=== PATIENT | male | born 1990 | race Caucasian/White ===

== ENCOUNTER 2016-10-26 09:13 | Emergency (ER) | payer BC ==
--- NOTE | 2016-10-26 09:32 | ERPHSYRPT ---
- History of Present Illness Time Seen by Provider: 10/26/16 09:27 Source: patient Exam Limitations: no limitations Patient Subjective Stated Complaint: PT REPORTS PLAYING BASKETBALL WHEN HE GOT HIT IN THE LEFT EYE BY AN ELBOW-DENIES LOC-REPORTS VOMIT X 2 YESTERDAY-STATES HE HAS A HEADACHE BUT DENIES NUMBNESS OR TINLGING Triage Nursing Assessment: PT PINK WARM ET [id number] ALL QUESTIONS CORRECTLY-MOVING ALL EXTREMITIES WITH EASE-RESP EASY ET NONLABORED-BRUISING NOTED TO LEFT EYE-PUPILS REACTIVE Physician History: The patient is a 25-year-old male who complains that he was hit on the left eyebrow by an elbow when he was playing basketball yesterday evening. He was stunned by the blow but denies loss of consciousness. He vomited 2 times yesterday. He still has a headache. There is a laceration to the left eyebrow. He denies numbness or tingling. A friend of his is a nurse who wanted him to be checked out. His last tetanus vaccination was within the last 5 years. His past medical history is unremarkable. Occurred: yesterday Severity: moderate Head Injury Location: frontal Method of Injury: direct blow, sports injury Loss of Consciousness: no loss of consciousness, dazed Associated Symptoms: vomiting, headaches Allergies/Adverse Reactions: No Known Drug Allergies Allergy (Verified 10/26/16 09:25) Home Medications: No Home Meds 0 mg PO UD 02/17/13 [History] Hx Tetanus, Diphtheria Vaccination/Date Given: Yes Hx Influenza Vaccination/Date Given: No Hx Pneumococcal Vaccination/Date Given: No Immunizations Up to Date: Yes - Review of Systems Constitutional: No Fever, No Chills Eyes: No Symptoms Ears, Nose, & Throat: No Symptoms Respiratory: No Cough, No Dyspnea Cardiac: No Chest Pain, No Edema, No Syncope Abdominal/Gastrointestinal: Vomiting, No Abdominal Pain, No Nausea, No Diarrhea Genitourinary Symptoms: No Dysuria Musculoskeletal: Injury Skin: No Rash Neurological: Headache Psychological: No Symptoms Endocrine: No Symptoms Hematologic/Lymphatic: No Symptoms Immunological/Allergic: No Symptoms All Other Systems: Reviewed and Negative - Past Medical History Pertinent Past Medical History: Yes Musculoskeletal History: Other - Past Surgical History Past Surgical History: Yes Other Surgical History: cyst removed from neck - Social History Smoking Status: Current every day smoker How long have you smoked: 0.5 Exposure to second hand smoke: No Drug Use: none Patient Lives Alone: No - Nursing Vital Signs Nursing Vital Signs: Initial Vital Signs Temperature 97.8 F Temperature Source Oral Pulse Rate 58 Respiratory Rate 18 Blood Pressure [Right Arm] 139/80 Pain Intensity 9 - [place] Coma Score Best Eye Response ([place]): (4) open spontaneously Best Verbal Response ([place]): (5) oriented Best Motor Response ([place]): (6) obeys commands Daysi Total: 15 - Physical Exam General Appearance: no apparent distress, alert Head Injury: lacerations (left eyebrow), tenderness Eye Exam: left eye: other (I exam is significant for mild tenderness in the left eye on upward gaze and leftward gaze.) ENT Exam: airway nml Neck Exam: supple Cardiovascular/Respiratory Exam: chest non-tender, normal breath sounds, regular rate/rhythm Gastrointestinal/Abdominal Exam: soft, non tender, no distention Rectal Exam: not done Back Exam: normal inspection, No vertebral tenderness Extremity Exam: non-tender, normal range of motion, normal inspection Mental Status Exam: alert, oriented x 3, cooperative sole stitcher hand Exam: normal hearing, normal speech Coordination/Gait Exam: normal finger to nose, normal gait Motor/Sensory Exam: no motor deficit, no sensory deficit, CN II-XII intact Skin Exam: laceration (left eyebrow) SpO2 Interpretation: normal SpO2: 99 Oxygen Delivery: Room Air Procedures - Laceration/Wound Repair Left Face Wound Location: Left (eyebrow) Wound Length (cm): 1 Wound's Depth, Shape: superficial, irregular Wound Explored: clean Hibiclens Prep: Yes Wound Repaired With: Dermabond - CT Exams Head CT Interpretation: Negative (per Dr Fields), No Fracture Maxillofacial Bones CT Interpretation: Negative (Per DR Fields), No Fracture Ordered Tests: Active Orders 24 hr Category Date Time Status Wound Care STAT Care 10/26/16 09:33 Active FACIAL BONES WO CONTRAST [CT] Stat Exams 10/26/16 09:33 Completed HEAD WITHOUT CONTRAST [CT] Stat Exams 10/26/16 09:32 Completed - Progress Progress: pain not gone completely Counseled pt/family regarding: rad results - Departure Time of Disposition: 11:21 Departure Disposition: Home Clinical Impression: Head contusion, Eyebrow laceration Condition: Stable Critical Care Time: No Additional Instructions: He had a contusion to your head and a laceration to your left eyebrow. The head CT and facial bone CT scans were negative. The laceration was closed with Dermabond glue. Your tetanus vaccination was within the last 5 years. You were given Toradol 60 mg IM in the ER for pain. Take Tylenol 1000 mg every 8 hours as needed. Take ibuprofen 800 mg every 8 hours as needed. Follow-up as needed.
--- NOTE | 2016-10-26 10:56 | XRAY ---
Indication: Left supraorbital head injury/laceration. Multiple contiguous axial images obtained through the head without contrast. Comparison: None Normal appearing brain parenchyma, ventricles, and bony calvarium. Minimal left supraorbital soft tissue swelling. Visualized paranasal sinuses and mastoid air cells clear. Impression: Left supraorbital soft tissue swelling. No underlying fracture or acute intracranial abnormalities. CT DI 70.98
--- NOTE | 2016-10-26 11:00 | XRAY ---
Indication: Left supraorbital head injury/laceration. Multiple contiguous axial images obtained through the facial bones. Sagittal and coronal reformatted images obtained. Comparison: None Minimal left supraorbital soft tissue swelling. A few bilateral dental amalgams. No acute fracture, suspicious bony lesions, or radiopaque foreign body. Orbits including roof, thompson, and floors intact. Visualized cervical spine normal. Mild mucosal thickening in the left maxillary sinus with lesser degree in the right. Remaining visualized paranasal sinuses and mastoid air cells clear. CT head reported separately. Impression: Left supraorbital soft tissue swelling. Negative acute fracture. Incidental paranasal sinus disease. CT DI 59.47
[2016-10-26] MEDS ORDERED: TORAdol 30 mg Injection IM ONE (11:20)
[2016-10-26] MEDS ORDERED: TORAdol 30 mg Injection ONE (11:27)
[2016-10-26 11:50] VITALS: BP 137/60; PULSE 77; O2SAT 100
== END 2016-10-26 11:53 | disposition home or self-care (01) ==
LOC: ED 09:13
PROC: 0HQ1XZZ Repair Face Skin, External Approach (ICD-10-PCS; principal; 2016-10-26)
DX: S00.93XA Contusion of unspecified part of head, initial encounter (principal); S01.112A Laceration without foreign body of left eyelid and periocular area, initial encounter; W50.0XXA Accidental hit or strike by another person, initial encounter; Y93.67 Activity, basketball
CPT/HCPCS: 12011; 70450; 70486; 96372; 99283; 99284; J1885

== ENCOUNTER 2017-05-19 19:22 | Emergency (ER) | payer BC ==
[2017-05-19] MEDS ORDERED: Zofran 4 MG/2 ML VIAL IV ONE ×2 (19:46→21:37)
[2017-05-19] MEDS ORDERED: Sodium Chloride 0.9% 1000 ML 1,000 ML IV STA ×2 (19:46→21:38)
[2017-05-19] MEDS ORDERED: TORAdol 30 mg Injection IV ONE (19:46)
[2017-05-19] MEDS ORDERED: Zofran 4 MG/2 ML VIAL ONE ×2 (19:49→21:39)
[2017-05-19] MEDS ORDERED: Sodium Chloride 0.9% 1000 ML 1,000 ML ONE ×2 (19:49→21:44)
[2017-05-19] MEDS ORDERED: TORAdol 30 mg Injection ONE (19:49)
--- NOTE | 2017-05-19 19:54 | ERPHSYRPT ---
- History of Present Illness Time Seen by Provider: 05/19/17 19:40 Historian: patient Exam Limitations: no limitations Patient Subjective Stated Complaint: Hematuria Triage Nursing Assessment: Pt presents to the ED with complaints of hematuria and painful urination. Pt states onset approximately 10 days ago with gradual worsening in pain. Pt denies other complaints. Pt is A&O x3, no distress noted. Physician History: 26 y/o male comes to the ER with complaints of hematuria, lower abdominal pain, back pain and testicular pain for the past 10 days. Pt states that the lower abdominal pain started first and then started having hematuria that has gotten worse. Lately, patient has been having dark blood with clots after finishing urinating. Pt describes the pain as sharp, constant, 6/10 and patient has not taken any pain meds. Pt also admits to dysuria and nausea as well as decrease PO intake. Pt denies any fever, chills, vomiting, constipation, or diarrhea. No trauma to the abdomen or testicles. Timing/Duration: day(s) Activities at Onset: none Quality: sharpness Abdominal Pain Onset Location: suprapubic Pain Radiation: flank Severity of Pain-Max: moderate Severity of Pain-Current: moderate Modifying Factors: Improves With: nothing Associated Symptoms: nausea, testicular pain, No vomiting Previous symptoms: no prior history Allergies/Adverse Reactions: No Known Drug Allergies Allergy (Verified 10/26/16 09:25) Home Medications: No Home Meds [No Home Meds] 0 mg PO UD 02/17/13 [History] Hx Tetanus, Diphtheria Vaccination/Date Given: Yes Hx Influenza Vaccination/Date Given: No Hx Pneumococcal Vaccination/Date Given: No Immunizations Up to Date: No - Review of Systems Constitutional: No Fever, No Chills Eyes: No Symptoms Ears, Nose, & Throat: No Symptoms Respiratory: No Cough, No Dyspnea Cardiac: No Chest Pain, No Edema, No Syncope Abdominal/Gastrointestinal: Abdominal Pain, Nausea, No Vomiting, No Diarrhea Genitourinary Symptoms: Dysuria, Hematuria, Flank Pain, Testicle Pain, No Frequency, No Penile Discharge Musculoskeletal: Back Pain, No Neck Pain Skin: No Symptoms, No Rash Neurological: No Dizziness, No Focal Weakness, No Sensory Changes Psychological: No Symptoms Endocrine: No Symptoms All Other Systems: Reviewed and Negative - Past Medical History Pertinent Past Medical History: Yes Musculoskeletal History: Other - Past Surgical History Past Surgical History: Yes Other Surgical History: cyst removed from neck - Social History Smoking Status: Current every day smoker How long have you smoked: 4 years Exposure to second hand smoke: Yes Drug Use: none Patient Lives Alone: No - Nursing Vital Signs Nursing Vital Signs: Initial Vital Signs Temperature 98.8 F 05/19/17 19:28 Pulse Rate 94 H 05/19/17 19:28 Respiratory Rate 16 05/19/17 19:28 Blood Pressure 144/82 05/19/17 19:28 O2 Sat by Pulse Oximetry 100 05/19/17 19:28 Pain Scale Pain Intensity 5 - Physical Exam General Appearance: no apparent distress, alert Eye Exam: PERRL/EOMI, eyes nml inspection Ears, Nose, Throat Exam: normal ENT inspection, pharynx normal, moist mucous membranes Neck Exam: normal inspection, non-tender, supple, full range of motion Respiratory Exam: normal breath sounds, lungs clear, No respiratory distress Cardiovascular Exam: regular rate/rhythm, normal heart sounds Gastrointestinal/Abdomen Exam: soft, No tenderness, No mass Male Genitalia Exam: testicular tenderness, No hernia, No testicular mass, No penile discharge Back Exam: normal inspection, normal range of motion, CVA tenderness, other ( lump palpated on left lower lumbar area), No vertebral tenderness Extremity Exam: normal inspection, normal range of motion, pelvis stable Neurologic Exam: alert, oriented x 3, cooperative, normal mood/affect, nml cerebellar function, sensation nml, No motor deficits Skin Exam: normal color, warm, dry SpO2: 100 Oxygen Delivery: Room Air - Course Nursing assessment & vital signs reviewed: Yes Ordered Tests: Active Orders 24 hr Category Date Time Status IV Insertion STAT Care 05/19/17 19:46 Active NPO (ED) STAT Care 05/19/17 19:46 Active ABDOMEN AND PELVIS W&WO CONTRA [CT] Stat Exams 05/19/17 19:47 Taken TESTICLE [US] Stat Exams 05/19/17 20:51 Taken AMYLASE Stat Lab 05/19/17 19:59 Completed CBC W DIFF Stat Lab 05/19/17 19:59 Completed CMP Stat Lab 05/19/17 19:59 Completed CULTURE,URINE Stat Lab 05/19/17 20:01 Received LIPASE Stat Lab 05/19/17 19:59 Completed Lactic Acid Stat Lab 05/19/17 20:03 Completed Lactic Acid Stat Lab 05/19/17 22:03 Ordered Manual Differential NC Stat Lab 05/19/17 19:59 Completed PROTIME WITH INR Stat Lab 05/19/17 19:59 Completed PTT Stat Lab 05/19/17 19:59 Completed UA W/ MICROSCOPIC Stat Lab 05/19/17 20:01 Completed Urine Triage Profile Stat Lab 05/19/17 20:01 Completed Medication Summary Generic Name Dose Route Start Last Admin Trade Name Freq PRN Reason Stop Dose Admin Tamsulosin HCl 0.4 mg 05/20/17 21:38 05/19/17 21:45 Flomax 0.4 Mg PO 05/20/17 21:39 0.4 mg ONCE ONE Administration Discontinued Medications Generic Name Dose Route Start Last Admin Trade Name Freq PRN Reason Stop Dose Admin Hydromorphone HCl 1 mg 05/19/17 22:50 05/19/17 22:53 Hydromorphone 1 Mg/Ml Ampule IV 05/19/17 22:51 1 mg STAT ONE Administration Hydromorphone HCl Confirm 05/19/17 22:52 Hydromorphone 1 Mg/Ml Ampule Administered 05/19/17 22:53 Dose 1 mg .ROUTE .STK-MED ONE Sodium Chloride 1,000 mls @ 999 mls/hr 05/19/17 19:46 05/19/17 19:56 Sodium Chloride 0.9% 1000 Ml IV 05/19/17 20:46 999 mls/hr .Q1H1M STA Administration Sodium Chloride Confirm 05/19/17 19:49 Sodium Chloride 0.9% 1000 Ml Administered 05/19/17 19:50 Dose 1,000 mls @ ud .ROUTE .STK-MED ONE Sodium Chloride 1,000 mls @ 999 mls/hr 05/19/17 21:38 05/19/17 21:45 Sodium Chloride 0.9% 1000 Ml IV 05/19/17 22:38 999 mls/hr .Q1H1M STA Administration Sodium Chloride Confirm 05/19/17 21:44 Sodium Chloride 0.9% 1000 Ml Administered 05/19/17 21:45 Dose 1,000 mls @ ud .ROUTE .STK-MED ONE Ketorolac Tromethamine 30 mg 05/19/17 19:46 05/19/17 19:56 Toradol 30 Mg Injection IV 05/19/17 19:47 30 mg STAT ONE Administration Ketorolac Tromethamine Confirm 05/19/17 19:49 Toradol 30 Mg Injection Administered 05/19/17 19:50 Dose 30 mg .ROUTE .STK-MED ONE Morphine Sulfate 4 mg 05/19/17 21:37 05/19/17 21:40 Morphine Sulfate 4 Mg Inj IV 05/19/17 21:38 4 mg STAT ONE Administration Morphine Sulfate Confirm 05/19/17 21:39 Morphine Sulfate 4 Mg Inj Administered 05/19/17 21:40 Dose 4 mg .ROUTE .STK-MED ONE Ondansetron HCl 4 mg 05/19/17 19:46 05/19/17 19:56 Zofran 4 Mg/2 Ml Vial IV 05/19/17 19:47 4 mg STAT ONE Administration Ondansetron HCl Confirm 05/19/17 19:49 Zofran 4 Mg/2 Ml Vial Administered 05/19/17 19:50 Dose 4 mg .ROUTE .STK-MED ONE Ondansetron HCl 4 mg 05/19/17 21:37 05/19/17 21:40 Zofran 4 Mg/2 Ml Vial IV 05/19/17 21:38 4 mg STAT ONE Administration Ondansetron HCl Confirm 05/19/17 21:39 Zofran 4 Mg/2 Ml Vial Administered 05/19/17 21:40 Dose 4 mg .ROUTE .STK-MED ONE Potassium Chloride 40 meq 05/19/17 21:20 05/19/17 21:27 Klor Con 10 Meq PO 05/19/17 21:21 40 meq STAT ONE Administration Potassium Chloride Confirm 05/19/17 21:26 Klor Con 10 Meq Administered 05/19/17 21:27 Dose 40 meq PO .STK-MED ONE Tamsulosin HCl Confirm 05/19/17 21:44 Flomax 0.4 Mg Administered 05/19/17 21:45 Dose 0.4 mg .ROUTE .STK-MED ONE Lab/Rad Data: Laboratory Result Diagrams 05/19/17 19:59 05/19/17 19:59 Laboratory Results 05/19/17 05/19/17 05/19/17 Range/Units 20:03 20:01 20:01 WBC (4.0-10.5) K/mm3 RBC (4.1-5.6) M/mm3 Hgb (12.5-18.0) gm/dl Hct (42-50) % MCV (78-100) fl MCH (26-32) pg MCHC (32-36) g/dl RDW (11.5-14.0) % Plt Count (150-450) K/mm3 MPV (6-9.5) fl Segmented Neutrophils (36.-66.) % Band Neutrophils (0.0-2.0) % Lymphocytes (Manual) (24-44) % Monocytes (Manual) (0.0-12.0) % Eosinophils (Manual) (0.00-3.0) % Differential Comment Atypical Lymphocytes % Platelet Estimate (NORMAL) INR (0.8-3.0) APTT (24.1-36.1) SECONDS Sodium (136-145) mEq/L Potassium (3.5-5.1) mEq/L Chloride (98-107) mEq/L Carbon Dioxide (21-32) mEq/L Anion Gap (5-15) MEQ/L BUN (9-20) mg/dL Creatinine (0.55-1.30) mg/dl Estimated GFR ML/MIN Glucose (70-110) MG/DL Lactic Acid 2.1 H (0.4-2.0) Calcium (8.5-10.1) mg/dL Total Bilirubin (0.2-1.0) mg/dL AST (15-37) U/L ALT (12-78) U/L Alkaline Phosphatase (46-116) U/L Serum Total Protein (6.4-8.2) gm/dL Albumin (3.4-5.0) g/dL Amylase (25-115) U/L Lipase (73-393) U/L Ur Collection Type VOID Urine Color YELLOW (YELLOW) Urine Appearance CLEAR (CLEAR) Urine pH 6.0 (5-6) Ur Specific [place] 1.020 (1.005-1.025) Urine Protein TRACE (Negative) Urine Ketones NEGATIVE (NEGATIVE) Urine Blood 50 (0-5) Ghassan/ul Urine Nitrite NEGATIVE (NEGATIVE) Urine Bilirubin NEGATIVE (NEGATIVE) Urine Urobilinogen NORMAL (0-1) mg/dL Ur Leukocyte Esterase TRACE (NEGATIVE) Urine Microscopic RBC 10-15 (0-2) /HPF Urine Microscopic WBC 5-10 (0-5) /HPF Ur Epithelial Cells FEW (FEW) /HPF Calcium Oxalate Crystal 0-2 (NEGATIVE) /HPF Urine Bacteria MODERATE (NEGATIVE) /HPF Urine Mucus MANY (NEGATIVE) /HPF Urine Culture Reflexed YES (NO) Urine Glucose NEGATIVE (NEGATIVE) mg/dL Urine Opiates Level POS. (NEGATIVE) Ur Methadone NEG. (NEGATIVE) Urine Barbiturates NEG. (NEGATIVE) Ur Phencyclidine (PCP) NEG. (NEGATIVE) Urine Amphetamine POS. (NEGATIVE) U Benzodiazepine Level POS. (NEGATIVE) Urine Cocaine NEG. (NEGATIVE) Urine Marijuana (THC) POS. (NEGATIVE) Specimen Received 05/19/17200905/19/17 05/19/17 05/19/17 Range/Units 19:59 19:59 19:59 WBC 6.6 (4.0-10.5) K/mm3 RBC 4.83 (4.1-5.6) M/mm3 Hgb 14.1 (12.5-18.0) gm/dl Hct 40.9 L (42-50) % MCV 84.7 (78-100) fl MCH 29.2 (26-32) pg MCHC 34.5 (32-36) g/dl RDW 12.6 (11.5-14.0) % Plt Count 178 (150-450) K/mm3 MPV 8.9 (6-9.5) fl Segmented Neutrophils 67 H (36.-66.) % Band Neutrophils 3 H (0.0-2.0) % Lymphocytes (Manual) 16 L (24-44) % Monocytes (Manual) 2 (0.0-12.0) % Eosinophils (Manual) 3 (0.00-3.0) % Differential Comment NORMAL Atypical Lymphocytes 9 % Platelet Estimate NORMAL (NORMAL) INR 1.19 (0.8-3.0) APTT 29.0 (24.1-36.1) SECONDS Sodium 141 (136-145) mEq/L Potassium 3.3 L (3.5-5.1) mEq/L Chloride 104 (98-107) mEq/L Carbon Dioxide 25.1 (21-32) mEq/L Anion Gap 14.8 (5-15) MEQ/L BUN 13 (9-20) mg/dL Creatinine 1.16 (0.55-1.30) mg/dl Estimated GFR > 60 ML/MIN Glucose 103 (70-110) MG/DL Lactic Acid (0.4-2.0) Calcium 8.8 (8.5-10.1) mg/dL Total Bilirubin 0.40 (0.2-1.0) mg/dL AST 17 (15-37) U/L ALT 31 (12-78) U/L Alkaline Phosphatase 88 (46-116) U/L Serum Total Protein 6.8 (6.4-8.2) gm/dL Albumin 3.9 (3.4-5.0) g/dL Amylase 41 (25-115) U/L Lipase 82 (73-393) U/L Ur Collection Type Urine Color (YELLOW) Urine Appearance (CLEAR) Urine pH (5-6) Ur Specific [place] (1.005-1.025) Urine Protein (Negative) Urine Ketones (NEGATIVE) Urine Blood (0-5) Ghassan/ul Urine Nitrite (NEGATIVE) Urine Bilirubin (NEGATIVE) Urine Urobilinogen (0-1) mg/dL Ur Leukocyte Esterase (NEGATIVE) Urine Microscopic RBC (0-2) /HPF Urine Microscopic WBC (0-5) /HPF Ur Epithelial Cells (FEW) /HPF Calcium Oxalate Crystal (NEGATIVE) /HPF Urine Bacteria (NEGATIVE) /HPF Urine Mucus (NEGATIVE) /HPF Urine Culture Reflexed (NO) Urine Glucose (NEGATIVE) mg/dL Urine Opiates Level (NEGATIVE) Ur Methadone (NEGATIVE) Urine Barbiturates (NEGATIVE) Ur Phencyclidine (PCP) (NEGATIVE) Urine Amphetamine (NEGATIVE) U Benzodiazepine Level (NEGATIVE) Urine Cocaine (NEGATIVE) Urine Marijuana (THC) (NEGATIVE) Specimen Received - Progress Progress: improved Progress Note: 05/19/17 22:[address] scan abd/pelvis shows a 3 mm stone in the distal right ureter. The labs are unremarkable except for elevated lactic acid. The patient also has a lactic acid of 2.1 and was given 2 liters of fluids. The patient also received flomax, zofran, toradol, morphine and dilaudid. Pt will be given a referral to urology, Dr Van. Pt will also be given scripts for flomax, zofran, toradol and percocet. - Departure Time of Disposition: 23:00 Departure Disposition: Home Clinical Impression: Kidney stone Condition: Stable Critical Care Time: Yes Critical Care Time(excluding separately billable procedures): 75-104 minutes Referrals: DOCTOR,NO FAMILY [Primary Care Provider] - REAL VAN [COURTESY STAFF] - Instructions: Kidney Stones (DC) Additional Instructions: Call Dr Van's office tomorrow to set up an appointment. Return to the ER if you should continue to have back pain, abdominal pain, nausea, vomiting, blood in the urine, fever or chills. Prescriptions: Ketorolac Tromethamine [Toradol] 10 mg PO QID PRN #20 tablet PRN Reason: Pain Ondansetron [Zofran Odt] 4 mg PO QID PRN #15 tab.rapdis PRN Reason: Nausea/Vomiting Oxycodone HCl/Acetaminophen [Percocet 5-325 mg Tablet] 1 each PO QID PRN #12 tablet MDD 4 PRN Reason: Pain Tamsulosin HCl 0.4 mg [Flomax 0.4 MG] 0.4 mg PO DAILY #7 cap
[2017-05-19 20:07] LABS: Lactic Acid 2.1 (0.4-2.0)
[2017-05-19 20:15] LABS: Hematocrit 40.9 % (42-50); Hemoglobin 14.1 gm/dl (12.5-18.0); Mean Cell Volume 84.7 fl (78-100); Mean Corpuscular Hemoglobin 29.2 pg (26-32); Mean Corpuscular Hgb Concent. 34.5 g/dl (32-36); Mean Platelet Volume 8.9 fl (6-9.5); Platelet Count 178 K/mm3 (150-450); Red Blood Count 4.83 M/mm3 (4.1-5.6); Red Cell Distribution Width 12.6 % (11.5-14.0); White Blood Count 6.6 K/mm3 (4.0-10.5)
[2017-05-19 20:20] LABS: Amphetamine,Urine POS. (NEGATIVE); Barbiturate,Urine NEG. (NEGATIVE); Benzodiazepine,Urine POS. (NEGATIVE); Cocaine,Urine NEG. (NEGATIVE); Methadone,Urine NEG. (NEGATIVE); Opiate,Urine POS. (NEGATIVE); PCP,Urine NEG. (NEGATIVE); THC,Urine POS. (NEGATIVE)
[2017-05-19 20:35] LABS: INR 1.19 (0.8-3.0)
[2017-05-19 20:42] LABS: Appearance CLEAR (CLEAR); Bacteria MODERATE /HPF (NEGATIVE); Bilirubin NEGATIVE (NEGATIVE); Blood 50 Ery/ul (0-5); CALCIUM OXALATE CRYSTALS 0-2 /HPF (NEGATIVE); Epithelial Cells FEW /HPF (FEW); Glucose NEGATIVE (NEGATIVE); Ketones NEGATIVE (NEGATIVE); Leukocyte Esterase TRACE (NEGATIVE); Mucus MANY /HPF (NEGATIVE); Nitrite NEGATIVE (NEGATIVE); Protein,Urine Dip TRACE (Negative); Urobilinogen NORMAL mg/dL (0-1)
[2017-05-19 20:54] LABS: ALBUMIN 3.9 g/dL (3.4-5.0); ALKALINE PHOSPHATASE 88 U/L (46-116); AMYLASE 41 U/L (25-115); ANION GAP 14.8 MEQ/L (5-15); BLOOD UREA NITROGEN 13 mg/dL (9-20); CHLORIDE 104 mEq/L (98-107); Calcium 8.8 mg/dL (8.5-10.1); Carbon Dioxide 25.1 mEq/L (21-32); Creatinine 1 1.16 mg/dl (0.55-1.30); EST GLOMERULAR FILTRATION RATE > 60 ML/MIN; Glucose 103 MG/DL (70-110); LIPASE 82 U/L (73-393); Potassium 3.3 mEq/L (3.5-5.1); SGOT/AST 17 U/L (15-37); SGPT/ALT 31 U/L (12-78); SODIUM 141 mEq/L (136-145); Total Protein 6.8 gm/dL (6.4-8.2)
[2017-05-19 21:15] LABS: ATYPICAL LYMPHS 9 %; BAND 3 % (0.0-2.0); Eosinophil 3 % (0.00-3.0); Lymphocytes 16 % (24-44); Monocyte 2 % (0.0-12.0); Neutrophils 67 % (36.-66.); Platelet Estimate NORMAL (NORMAL); Total Cells Counted 100
[2017-05-19] MEDS ORDERED: Klor Con 10 MEQ PO ONE ×2 (21:20→21:26)
[2017-05-19] MEDS ORDERED: MORPHINE SULFATE 4 MG INJ IV ONE (21:37)
[2017-05-19] MEDS ORDERED: MORPHINE SULFATE 4 MG INJ ONE (21:39)
[2017-05-19] MEDS ORDERED: Flomax 0.4 MG ONE (21:44)
[2017-05-19] MEDS ORDERED: Hydromorphone 1 mg/ml Ampule IV ONE (22:50)
[2017-05-19] MEDS ORDERED: Hydromorphone 1 mg/ml Ampule ONE (22:52)
[2017-05-19] MEDS ORDERED: PERCOCET TABLET 5/325MG PO STA (23:05)
[2017-05-19] MEDS ORDERED: PERCOCET TABLET 5/325MG ONE (23:07)
[2017-05-19 23:24] VITALS: BP 130/78; PULSE 80; O2SAT 98
--- NOTE | 2017-05-20 08:44 | XRAY ---
Indication: Bilateral testicular pain. Two-dimensional testicular sonogram performed. Comparison: None Both testicles homogeneous in echogenicity with normal color perfusion. Right testicle measures 4.9 x 2.1 x 3.2 cm and the left measures 3.7 x 2.3 x 3.1 cm. 5 mm right epididymal cyst. Remaining left and right epididymis sonographically unremarkable. No suspicious extratesticular mass or hydrocele. Impression: Right epididymal cyst. Remaining testicular sonogram is negative. Comment: Preliminary report was given.
--- NOTE | 2017-05-20 08:46 | XRAY ---
Indication: Lower abdominal pain with hematuria. Frequent urination with clots. Multiple contiguous axial images obtained through the abdomen and pelvis prior to and following 80 cc Isovue 370 contrast. Comparison: None Lung bases are clear. Heart is not enlarged. Noncontrast images demonstrates 3-4 mm urinary bladder calculus posterior laterally on the right. Right ureter is slightly prominent consistent with recent passage of said calculus. No hydronephrosis or other calculus in either system. Noncontrasted stomach and bowel loops appear nonobstructed. Normal appendix. No free fluid/air. Postcontrast images demonstrates normal visceral enhancement and renal excretion. Spleen is enlarged measuring 13 cm in greatest axial dimension. Remaining liver, gallbladder, pancreas, adrenal glands, kidneys, ureters, bladder, and aorta appear unremarkable. No pathologic retroperitoneal lymphadenopathy. Osseous structures intact. Impression: 1. 3-5 mm right posterior urinary bladder calculus from recent right-sided passage. 2. Incidental splenomegaly. 3. Remaining CT abdomen/pelvis with and without contrast exam is negative. Comment: Preliminary interpretation was made by [facility]. No discrepancy. CTDI 13.11
[2017-05-20] MEDS ORDERED: Flomax 0.4 MG PO ONE (21:38)
== END 2017-05-19 23:24 | disposition home or self-care (01) ==
LOC: ED 19:22
DX: N20.0 Calculus of kidney (principal); Z72.0 Tobacco use
CPT/HCPCS: 36000; 36415; 74178; 76870; 80053; 80307; 81000; 82150; 83605; 83690; 85025; 85610; 85730; 87086; 96360; 96361; 96374; 96376; 99284; J1170; J1885; J2270; J2405; A9270-GY